=== PATIENT | female | born 1980 | race Hispanic/Latino ===

== ENCOUNTER 2023-05-07 21:48 | Emergency (ER) | payer OTHER | END 2023-05-07 22:47 | disposition home or self-care (01) | LOC: ERS 21:48 | DX: H66.91 Otitis media, unspecified, right ear (principal); Z20.822 Contact with and (suspected) exposure to COVID-19; F17.210 Nicotine dependence, cigarettes, uncomplicated | CPT/HCPCS: 87635; 99283 ==